=== PATIENT | female | born 1945 | race Caucasian/White ===

== ENCOUNTER → 2016-12-05 | Outpatient (CLI) | payer MEDICARE ==
[~2016-12-05] MED LIST: ASPIRIN81 M1 PO; ATORVASTATIN CA80 M1 PO; BACTRIM DS 8001 TA1 PO; Clopidogrel75 MG PO; HYDROCODONE BIT1 T11 PO; LISINOPRIL20 MG PO; LISINOPRIL40 MG PO; NKHM
== END | disposition home or self-care (01) ==
LOC: MAMMO 12:58
DX: Z12.31 Encounter for screening mammogram for malignant neoplasm of breast (principal)

== ENCOUNTER 2016-12-12 03:35 | Inpatient (IN) | payer MEDICARE ==
[2016-12-12] VITALS (15 sets, daily range): BP systolic 108–208; BP diastolic 52–102
[~2016-12-12] VITALS: Ht 154.9 cm; Wt 66.2 kg
--- NOTE | ~2016-12-12 | CON ---
[place], [place] REPORT OF CONSULTATION NAME: MARIELOS FARIAS UNIT #: [id number] ROOM: 402 DOCTOR: ANA CADEEDIL BIRTHDATE: [birth year] DOS: 12/14/2016 ADMITTING PHYSICIAN: Dr. Fadi Tom. The patient is on hospitalist service. REASON FOR ENT CONSULTATION: Epistaxis. HISTORY OF PRESENT ILLNESS: This patient is a 71-year-old white female who was admitted via the Emergency Department 2 days ago. The patient has experienced severe recurrent epistaxis. Medical documentations on the Emergency Department indicated she was cauterized and subsequently the left nasal cavity was packed with a Rhino Rocket. The Rhino Rocket was kept in place for 36 hours and removed. The patient has developed recurrent left-sided bleeding today. The patient has no history of recent nasal trauma. She does have underlying hypertension, which has been controlled during this hospitalization. She has a history of cerebrovascular accident in September 2015 and is managed with blood thinners including aspirin and antiplatelet aggregation therapy. The patient has been transfused with several units of blood due to normocytic anemia. 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 PAST SURGICAL HISTORY: History of hysterectomy. CURRENT MEDICATIONS: Lipitor, lisinopril, morphine, [place], Zofran, magnesium. ALLERGIES: The patient has no known drug allergies. SOCIAL HISTORY: The patient has an underlying history of alcoholism. She is a cigarette smoker, denies illicit drug use. LABORATORY STUDIES: CBC today shows a hemoglobin of 7.7, platelet count 152, white blood cell count 6.1. IMAGING STUDIES: The patient had a CT scan of the head performed December 12 which showed no acute intracranial pathology. She does have chronic small vessel ischemic changes. A fluid level was noted within the left maxillary sinus, most likely from the bleeding. PHYSICAL EXAMINATION: VITAL SIGNS: Temperature 98.6 oral, pulse 77, respiratory rate 20, blood pressure 155/61, pulse ox 100% on room air. Exam of the oral cavity: The patient wears dentures. Oropharyngeal exam shows postnasal bloody drainage. The patient was actively bleeding from the left nasal cavity. The left nasal cavity was suctioned and a Rhino Rocket was placed. It was infiltrated with 10 mL of water. In addition, 3 inches of Surgicel was applied in the anterior nasal cavity for additional pressure and all bleeding was controlled. Reinspection of the nasopharynx shows no bloody postnasal drainage. [place], [place] REPORT OF CONSULTATION NAME: MARIELOS FARIAS UNIT #: [id number] ROOM: 402 DOCTOR: EDIL PEREZ MD BIRTHDATE: [birth year] IMPRESSION: Severe left posterior epistaxis controlled with Rhino Rocket. RECOMMENDATIONS: Case was discussed with both nursing and the resident on-call for the hospitalist service. Recommendation is to leave packing in place for 48 hours. Antibiotic prophylaxis will be ordered in the form of Augmentin. I have instructed the hospitalist service to remove the packing in 48 hours and if she develops additional bleeding recommend transfer to [facility]. The reason for this is because I will be away at a conference for the next 11 days starting [facility]. This was explained to both nursing and the hospitalist service. EDIL PEREZ MD CM:CONSTR:REPORT OF CONSULTATION 27 12/14/161920 interface
[~2016-12-12 03:35] MED LIST changes: -ATORVASTATIN CA80 M1 PO; -Clopidogrel75 MG PO; -LISINOPRIL20 MG PO; -LISINOPRIL40 MG PO
[2016-12-12] MEDS ORDERED: LISINOPRIL20 MG PO (03:38)
[2016-12-12] MEDS ORDERED: ASPIRIN81 M1 PO (03:38)
[2016-12-12] MEDS ORDERED: Clopidogrel75 MG PO (03:39)
[2016-12-12] MEDS ORDERED: ATORVASTATIN CA80 M1 PO (03:39)
[2016-12-12 03:53] LABS: BASO % 0.2 % (0.0-1.0); EOS # 0.1 10*3/uL (0.0-0.4); EOS % 1.1 % (1.0-4.0); HEMATOCRIT 35.9 % (37.0-47.0); HEMOGLOBIN 11.8 g/dl (12.0-16.0); LYMPH # 1.6 10*3/uL (1.3-4.4); LYMPH % 16.3 % (27.0-41.0); MEAN CELL VOLUME 93.2 fl (81.0-99.0); MEAN CORPUSCULAR HGB 30.6 pg (27.0-31.0); MEAN CORPUSCULAR HGB CONC 32.9 g/dl (33.0-37.0); MEAN PLATELET VOLUME 10.2 fl (9.6-12.3); MONO # 0.6 10*3/uL (0.1-1.0); MONO % 6.3 % (3.0-9.0); NEUT # 7.2 10*3/uL (2.3-7.9); NEUT % 75.8 % (47.0-73.0); PLATELET COUNT AUTOMATED 285 10*3/uL (130-400); RED BLOOD COUNT 3.85 10*6/uL (4.10-5.10); RED CELL DISTRI WIDTH 14.4 % (0-14.5); WHITE BLOOD COUNT 9.5 10*3/uL (4.8-10.8)
[2016-12-12 04:04] LABS: INTERNATIONAL NORM RATIO 0.9 (2.0-3.5)
[2016-12-12 04:24] LABS: BUN 8 mg/dl (7-24); CARBON DIOXIDE 25 mmol/L (21-32); CHLORIDE 101 mmol/L (98-107); EST GLOM FILT AFRICAN AMERICAN > 60 ml/min; GLUCOSE 112 mg/dL (65-99); SODIUM 136 mmol/L (136-145)
[2016-12-13] VITALS: BP 132/54
[2016-12-13 06:22] LABS: BASO % 0.1 % (0.0-1.0); EOS % 0.1 % (1.0-4.0); LYMPH # 0.9 10*3/uL (1.3-4.4); LYMPH % 12.1 % (27.0-41.0); MEAN CELL VOLUME 92.9 fl (81.0-99.0); MEAN CORPUSCULAR HGB CONC 32.3 g/dl (33.0-37.0); MEAN PLATELET VOLUME 10.1 fl (9.6-12.3); MONO # 0.4 10*3/uL (0.1-1.0); MONO % 5.8 % (3.0-9.0); NEUT # 5.8 10*3/uL (2.3-7.9); NEUT % 81.5 % (47.0-73.0); PLATELET COUNT AUTOMATED 211 10*3/uL (130-400); RED BLOOD COUNT 2.53 10*6/uL (4.10-5.10); RED CELL DISTRI WIDTH 14.2 % (0-14.5); WHITE BLOOD COUNT 7.1 10*3/uL (4.8-10.8)
[2016-12-13 06:32] LABS: HEMATOCRIT 23.5 % (37.0-47.0); HEMOGLOBIN 7.6 g/dl (12.0-16.0); PROTHROMBIN TIME 10.3 SECONDS (9.0-12.4)
[2016-12-13 06:40] LABS: CARBON DIOXIDE 28 mmol/L (21-32); CHLORIDE 105 mmol/L (98-107); CHOLESTEROL 91 mg/dL (<200); EST GLOM FILT AFRICAN AMERICAN > 60 ml/min; FREE T4 1.14 ng/dl (0.76-1.46); GLUCOSE 87 mg/dL (65-99); HDL CHOLESTEROL 43 mg/dl (40-60); LDL CHOLESTEROL 35 mg/dL (9-159); POTASSIUM 3.8 mmol/L (3.5-5.1); SODIUM 139 mmol/L (136-145); TRIGLYCERIDES 65 mg/dl (<150); VLDL CHOLESTEROL 13 mg/dL (6-40)
[2016-12-13 06:42] LABS: BUN 26 mg/dl (7-24)
[2016-12-13 06:52] LABS: FOLIC ACID 4.89 ng/mL (>5.38)
[2016-12-13 06:59] LABS: HEMOGLOBIN A1c 4.9 % (4.8-5.6)
[2016-12-13 08:00] VITALS: BP 150/68
[2016-12-13 12:00] VITALS: BP 136/56
[2016-12-13] MEDS ORDERED: LISINOPRIL40 MG PO (12:22)
[2016-12-13 16:00] VITALS: BP 106/48; BP 112/60
[2016-12-13 20:00] VITALS: BP 125/57
[2016-12-14] VITALS: BP 110/60; BP 141/86
[2016-12-14 06:40] LABS: BASO % 0.2 % (0.0-1.0); EOS # 0.1 10*3/uL (0.0-0.4); EOS % 1.6 % (1.0-4.0); HEMATOCRIT 24.1 % (37.0-47.0); HEMOGLOBIN 7.8 g/dl (12.0-16.0); LYMPH % 16.8 % (27.0-41.0); MEAN CORPUSCULAR HGB 31.2 pg (27.0-31.0); MEAN CORPUSCULAR HGB CONC 32.4 g/dl (33.0-37.0); MEAN PLATELET VOLUME 10.5 fl (9.6-12.3); MONO # 0.6 10*3/uL (0.1-1.0); MONO % 9.8 % (3.0-9.0); NEUT # 4.1 10*3/uL (2.3-7.9); NEUT % 71.3 % (47.0-73.0); PLATELET COUNT AUTOMATED 160 10*3/uL (130-400); RED CELL DISTRI WIDTH 13.8 % (0-14.5); WHITE BLOOD COUNT 5.7 10*3/uL (4.8-10.8)
[2016-12-14 06:44] LABS: MEAN CELL VOLUME 96.4 fl (81.0-99.0)
[2016-12-14 06:50] LABS: PROTHROMBIN TIME 10.4 SECONDS (9.0-12.4)
[2016-12-14 06:51] LABS: CARBON DIOXIDE 28 mmol/L (21-32); CHLORIDE 106 mmol/L (98-107); EST GLOM FILT AFRICAN AMERICAN > 60 ml/min; GLUCOSE 90 mg/dL (65-99); POTASSIUM 4.2 mmol/L (3.5-5.1); SODIUM 141 mmol/L (136-145)
[2016-12-14 06:52] LABS: BUN 15 mg/dl (7-24)
[2016-12-14 08:00] VITALS: BP 120/60
[2016-12-14 12:00] VITALS: BP 132/60
[2016-12-14 15:33] LABS: BASO % 0.2 % (0.0-1.0); EOS # 0.1 10*3/uL (0.0-0.4); EOS % 1.5 % (1.0-4.0); HEMATOCRIT 22.7 % (37.0-47.0); HEMOGLOBIN 7.7 g/dl (12.0-16.0); LYMPH # 0.8 10*3/uL (1.3-4.4); LYMPH % 13.1 % (27.0-41.0); MEAN CELL VOLUME 94.6 fl (81.0-99.0); MEAN CORPUSCULAR HGB 32.1 pg (27.0-31.0); MEAN CORPUSCULAR HGB CONC 33.9 g/dl (33.0-37.0); MEAN PLATELET VOLUME 9.5 fl (9.6-12.3); MONO # 0.5 10*3/uL (0.1-1.0); MONO % 8.2 % (3.0-9.0); NEUT # 4.7 10*3/uL (2.3-7.9); NEUT % 76.5 % (47.0-73.0); PLATELET COUNT AUTOMATED 152 10*3/uL (130-400); RED CELL DISTRI WIDTH 13.6 % (0-14.5); WHITE BLOOD COUNT 6.1 10*3/uL (4.8-10.8)
[2016-12-14 16:00] VITALS: BP 132/62
[2016-12-14 16:56] VITALS: BP 155/61
[2016-12-14 20:00] VITALS: BP 155/61
[2016-12-14 20:00] LABS: BASO % 0.1 % (0.0-1.0); EOS # 0.1 10*3/uL (0.0-0.4); EOS % 0.9 % (1.0-4.0); HEMATOCRIT 26.8 % (37.0-47.0); HEMOGLOBIN 8.9 g/dl (12.0-16.0); LYMPH % 10.3 % (27.0-41.0); MEAN CELL VOLUME 94.7 fl (81.0-99.0); MEAN CORPUSCULAR HGB 31.4 pg (27.0-31.0); MEAN CORPUSCULAR HGB CONC 33.2 g/dl (33.0-37.0); MEAN PLATELET VOLUME 10.1 fl (9.6-12.3); MONO # 0.7 10*3/uL (0.1-1.0); NEUT # 7.7 10*3/uL (2.3-7.9); NEUT % 81.3 % (47.0-73.0); PLATELET COUNT AUTOMATED 166 10*3/uL (130-400); RED BLOOD COUNT 2.83 10*6/uL (4.10-5.10); RED CELL DISTRI WIDTH 13.7 % (0-14.5); WHITE BLOOD COUNT 9.5 10*3/uL (4.8-10.8)
== END 2016-12-15 00:21 | disposition short-term general hospital (02) | DRG 151 ==
LOC: ED 03:35 → EDHOLD 05:26 → 4E 05:26 → EDHOLD 07:18 → 4E 07:49
PROVIDERS: Emergency Medicine Emergency Medical Services; Internal Medicine; Student in an Organized Health Care Education/Training Program
PROC: 30233N1 Transfusion of Nonautologous Red Blood Cells into Peripheral Vein, Percutaneous Approach (ICD-10-PCS; principal; 2016-12-13)
PROC: 2Y41X5Z Packing of Nasal Region using Packing Material (ICD-10-PCS; 2016-12-13)
DX: R04.0 Epistaxis (principal); D50.0 Iron deficiency anemia secondary to blood loss (chronic); I10 Essential (primary) hypertension; I16.1 Hypertensive emergency; E78.5 Hyperlipidemia, unspecified; Z90.710 Acquired absence of both cervix and uterus; Z82.49 Family history of ischemic heart disease and other diseases of the circulatory system; Z83.3 Family history of diabetes mellitus; Z86.73 Personal history of transient ischemic attack (TIA), and cerebral infarction without residual deficits; Z79.82 Long term (current) use of aspirin; Z79.899 Other long term (current) drug therapy; Z72.0 Tobacco use

== ENCOUNTER 2023-05-29 11:50 | Emergency (ER) | payer OTHER ==
[~2023-05-29] VITALS: Ht 154.9 cm; Wt 59.0 kg
[~2023-05-29 11:50] MED LIST changes: +ATORVASTATIN CA80 M1 PO; +Clopidogrel75 MG PO; +LISINOPRIL20 MG PO; +LISINOPRIL40 MG PO
[2023-05-29 12:04] VITALS: BP 137/63
[2023-05-29] MEDS ORDERED: AMLODIPINE BESYL5 MG PO (12:05)
[2023-05-29] MEDS ORDERED: ATORVASTATIN CA40 M1 PO (12:06)
[2023-05-29 12:51] LABS: BASO % 0.1 % (0.0-1.0); EOS # 0.1 10*3/uL (0.0-0.4); EOS % 0.9 % (1.0-4.0); LYMPH # 0.9 10*3/uL (1.3-4.4); LYMPH % 9.5 % (27.0-41.0); MEAN CELL VOLUME 85.1 fl (81.0-99.0); MEAN CORPUSCULAR HGB 30.3 pg (27.0-31.0); MEAN CORPUSCULAR HGB CONC 35.6 g/dl (33.0-37.0); MEAN PLATELET VOLUME 8.5 fl (9.6-12.3); MONO # 0.6 10*3/uL (0.1-1.0); MONO % 6.7 % (3.0-9.0); NEUT # 7.5 10*3/uL (2.3-7.9); NEUT % 82.4 % (47.0-73.0); PLATELET COUNT AUTOMATED 342 10*3/uL (130-400); RED BLOOD COUNT 4.23 10*6/uL (4.10-5.10); RED CELL DISTRI WIDTH 13.1 % (0-14.5); WHITE BLOOD COUNT 9.1 10*3/uL (4.8-10.8)
[2023-05-29 13:17] LABS: ACT PARTIAL THROMBO TIME 29.8 SECONDS (20.0-32.1)
[2023-05-29 13:30] LABS: ALKALINE PHOSPHATASE 62 U/L (46-116); BUN 14 mg/dl (9-23); CHLORIDE 87 mmol/L (98-107); LIPASE 157 U/L (12-53); POTASSIUM 4.2 mmol/L (3.4-5.1); SGPT/ALT 9 U/L (10-49); TOTAL PROTEIN 7.4 gm/dL (6.0-8.0)
[2023-05-29 18:19] LABS: BILIRUBIN Negative (Negative); BLOOD 1+ (Negative); CLARITY Clear (Clear); COLOR Yellow (Yellow); GLUCOSE Negative (Negative); KETONE 1+ (Negative); LEUKO ESTERASE Trace (Negative); NITRITE Negative (Negative); PH 6.5 (4.5-8.0); SPECIFIC GRAVITY >= 1.030 (1.001-1.030); UROBILINOGEN 0.2 E.U./dl (0.0-1.0)
[2023-05-29 18:26] LABS: BACTERIA 2+; EPITHELIAL CELLS 0-2
[2023-05-29 18:53] LABS: BUN 10 mg/dl (9-23); CHLORIDE 90 mmol/L (98-107); POTASSIUM 4.1 mmol/L (3.4-5.1)
[2023-05-29 19:25] VITALS: BP 159/75
== END 2023-05-29 21:26 | disposition short-term general hospital (02) ==
LOC: ED 11:50 → EDHOLD 13:46 → ED 13:46 → EDHOLD 14:29 → ED 21:26
PROVIDERS: Emergency Medicine; Student in an Organized Health Care Education/Training Program
DX: E87.1 Hypo-osmolality and hyponatremia (principal); I10 Essential (primary) hypertension; E78.5 Hyperlipidemia, unspecified; Z90.710 Acquired absence of both cervix and uterus; Z98.890 Other specified postprocedural states; F17.200 Nicotine dependence, unspecified, uncomplicated